=== PATIENT | male | born 1940 | race Caucasian/White ===

== ENCOUNTER 2019-07-21 06:52 | Day surgery (SDC) | payer MEDICARE ==
--- NOTE | 2019-07-11 09:13 | HP ---
CC: Dr. Tasneem Scott * HISTORY AND PHYSICAL: DATE OF PLANNED ADMISSION AND SURGERY: 07/21/19 HISTORY OF PRESENT ILLNESS: Mr. Galvan is an 79-year-old white male who is admitted with symptomatic phimosis and recurrent balanitis for circumcision. Mr. Galvan had past history of recurrent urinary tract infections and recurrent balanitis. This was initially managed with antibiotic ointments. Recently, the foreskin seems to have been gotten more redundant and also more phimotic and he has been unable to retract the foreskin. He also had several episodes of balanitis, which were difficult to treat with topical antibiotics. He is not diabetic. Examination in the office confirmed a tight phimosis. The patient was given the options of circumcision vs dorsal slit and he elected to have a circumcision. Past history is relevant for renal cell carcinoma of his left kidney diagnosed in 1998. At that time, I performed a left radical nephrectomy. He has done very well and has had no recurrent disease. His renal function has been stable and has done very well. The patient had been also followed because of a bladder outlet obstruction; however, he has been able to empty his bladder adequately and he has not been on any medications for his voiding. His last PSA in January 2019 was 3.9 which has been stable for the last 6 years. PAST MEDICAL HISTORY AND SYSTEM REVIEW: He is hypertensive, maintained on atenolol 12.5 mg daily. He has history of gout and he takes colchicine and indomethacin as needed for acute attacks. He has environmental allergies and takes Flonase as needed. He has asthma, on ProAir inhalers and on Advair Diskus as needed. He has GERD, on omeprazole 20 mg daily. He takes Cialis as needed for erectile dysfunction. FAMILY HISTORY: Negative. SOCIAL HISTORY: The patient is a nonsmoker. He denies the use of recreational drugs. He denies any mental health problems. PHYSICAL EXAMINATION GENERAL: He is pleasant and healthy looking for age. VITAL SIGNS: Blood pressure 130/84, pulse of 70. LUNGS: Clear. HEART: Regular and rhythmic. No murmurs. ABDOMEN: Soft. No masses, no tenderness and no CVA tenderness. EXTERNAL GENITALIA: He is not circumcised. There is a redundant and phimotic foreskin with changes of chronic balanitis. Testes feel normal. No inguinal hernias. Rectal exam shows a moderately enlarged, but nonsuspicious prostate. IMPRESSION: Symptomatic phimosis and recurrent balanitis. PLAN/RECOMMENDATIONS: Plan is for circumcision. The procedure can be done using a penile block with IV sedation and anesthesia monitoring. I discussed the above plans in detail with the patient. All his questions were answered. [id number]/[facility] #: [id number] MTDD
[~2019-07-21 06:52] MED LIST: Buffered Lidocaine 1% SYRIN* 1 ML/SYRINGE INTRADERM ONE; Lactated Ringers 1000 ML Bag* 1,000 ML IV SCH
[2019-07-21] MEDS ORDERED: Buffered Lidocaine 1% SYRIN* 1 ML/SYRINGE INTRADERM ONE (07:21)
[2019-07-21] MEDS ORDERED: Lidocaine 2% JELLY* 20 ML (for OR use) ONE (08:14)
[2019-07-21] MEDS ORDERED: Lidocaine 1% INJ* 10 MG/ML 30 ML SDV ONE (08:14)
[2019-07-21] MEDS ORDERED: Bacitracin OINTMENT* 0.5% 0.5 oz TUBE ONE (08:14)
[2019-07-21] MEDS ORDERED: Bupivacaine 0.5%* 50 ML MDV VIAL ONE (08:14)
[2019-07-21] MEDS ORDERED: Lidocaine 2% PF * 5 ML VIAL ONE (08:16)
[2019-07-21] MEDS ORDERED: fentaNYL* 50 MCG/ML 2 ML VIAL (100 MCG VIAL) ONE (08:16)
[2019-07-21] MEDS ORDERED: Propofol* 10 MG/ML 20 ML BTL ONE (08:16)
[2019-07-21] MEDS ORDERED: Naloxone* 0.4 MG/ML 1 ML VIAL IV PRN (09:30)
[2019-07-21 10:32] VITALS: BP 165/90
--- NOTE | 2019-07-21 12:40 | OP ---
DATE OF OPERATION: 07/21/19 [facility] DATE OF : 38 SURGEON: Dakotah Alberts MD. ANESTHESIOLOGIST: Dr. Kimball. ANESTHESIA: IV sedation with MAC and penile block. PRE-OP DIAGNOSES: 1. Phimosis. 2. Recurrent balanitis. 3. Redundant foreskin. POST-OP DIAGNOSES: 1. Phimosis. 2. Recurrent balanitis. 3. Redundant foreskin. OPERATIVE PROCEDURE: Circumcision. INDICATIONS FOR PROCEDURE: Mr. Galvan is an 79-year-old white male who is a non diabetic, and who developed recurrent balanitis and tight phimosis. He was managed conservatively with antibiotics, antifungal and steroid ointments, but the condition persisted and became significantly bothersome. Examination showed tight phimosis and redundant foreskin. Because of the above history and after discussing the options of dorsal slit versus circumcision, the patient elected to have a circumcision. OPERATIVE FINDINGS: Tight phimosis was noted. After performing the dorsal slit and retracting the foreskin, there were no suspicious lesions noted on the glans penis or on the inside wall of the foreskin. There were changes of chronic balanitis. The urethral meatus looked normal. DESCRIPTION OF PROCEDURE: With the patient in the supine position and after proper scrubbing and draping and under intravenous sedation with anesthesia monitoring, a total of 12 cc of 0.5% Marcaine without epinephrine were used as a penile block, achieving excellent anesthesia. A dorsal slit was then performed. The foreskin was retracted and the glans was again prepped with Betadine. An incision was carried on the skin aspect of the foreskin at the level of the gray. The foreskin was then retracted and another incision was carried in the mucous membrane aspect of the foreskin about 1 cm parallel and proximal to the gray. The foreskin was then excised using cautery. The bleeders were controlled with either 4-0 Vicryl ties or with cautery, achieving good hemostasis. The stump of the foreskin was then approximated using interrupted sutures of 4- 0 chromic. The final result looked satisfactory and there was good hemostasis. Antibiotic ointment was applied over the glans and over the incision and a gentle circular dressing was applied. The patient tolerated the procedure well and left the operating room in good condition. The blood loss was minimal. The specimen was foreskin. All the counts were correct. [id number]/[facility] #: [id number] [facility]ITAL[facility]
== END 2019-07-21 11:17 | disposition home or self-care (01) ==
LOC: OR 06:52
PROVIDERS: ATTEND Urology
DX: N47.1 Phimosis (principal); N48.1 Balanitis; I10 Essential (primary) hypertension; M10.9 Gout, unspecified; J45.909 Unspecified asthma, uncomplicated; K21.9 Gastro-esophageal reflux disease without esophagitis; Z85.528 Personal history of other malignant neoplasm of kidney
CPT/HCPCS: 88304; A9270-GY; J2704; J3010; J3490